=== PATIENT | female | born 1970 | race Caucasian/White ===

== ENCOUNTER 2020-10-22 08:10 | Inpatient (IN) | payer OTHER ==
[~2020-10-22] VITALS: Ht 167.6 cm; Wt 73.0 kg
== END 2020-10-23 17:20 | disposition home or self-care (01) | DRG 343 ==
LOC: ER 08:10 → SEC-K 13:25 → SURG 17:10
PROVIDERS: ADMIT Surgery; ATTEND Surgery
PROC: 0DTJ4ZZ Resection of Appendix, Percutaneous Endoscopic Approach (ICD-10-PCS; principal; 2020-10-22 13:15)
DX: K35.890 Other acute appendicitis without perforation or gangrene (principal); R10.31 Right lower quadrant pain; A08.8 Other specified intestinal infections; R07.1 Chest pain on breathing; Z20.822 Contact with and (suspected) exposure to COVID-19